=== PATIENT | female | born 1965 | race Caucasian/White ===

== ENCOUNTER 2016-07-04 08:22 | Day surgery (SDC) | payer OTHER ==
[~2016-07-04 08:22] MED LIST: RINGERS SOLUTION,LACTATED 1,000 ML IV PRN
[2016-07-04 08:40] LABS: Hematocrit 41.5 % (37.0-47.0); Hemoglobin 13.9 gm/dL (12.5-16.0); Mean Cell Volume 84.3 fl (78-100); Mean Corpuscular Hemoglobin 28.3 pg (27-31); Mean Corpuscular Hgb Conc 33.5 g/dl (32-36); Mean Platelet Volume 9.7 fl (6.0-9.5); Neutrophil # 3.3 K/mm3 (1.3-6.0); Neutrophil % 62.7 % (42-75.0); Platelet Count 279 K/mm3 (150-450); Red Blood Count 4.92 M/mm3 (4.2-5.4); Red Cell Distribution Width 14.2 % (11.5-14.0); White Blood Count 5.3 K/mm3 (4.0-10.5)
[2016-07-04] MEDS ORDERED: RINGERS SOLUTION,LACTATED 1,000 ML IV ONE (09:04)
[2016-07-04] MEDS ORDERED: oxyCODONE HCL/ACETAMINOPHEN 1 TAB TABLET PO PRN (10:10)
[2016-07-04] MEDS ORDERED: IBUPROFEN 600 MG TABLET PO PRN (10:11)
[2016-07-04 11:13] VITALS: BP 130/82
--- NOTE | 2016-07-04 12:45 | OR ---
Operative Report - Dictated Report Narrative: Operative Report 07/04/16 Hysteroscopy Dilatation and Curettage Preoperative Diagnosis: Menorrhagia, Postmenopausal Bleeding Postoperative Diagnosis: Postmenopausal Bleeding, Cervical Stenosis Procedure: Hysteroscopy Dilatation and Curettage Surgeon: Janay Moreno M.D. Anesthesia: Jarad Ocasio CRNA, IV sedation Findings: Cervical stenosis. Uterine sound with hysteroscope 7 cm. There was no evidence of submucosal fibroid or endometrial polyp. Fluids: 200 ml EBL: Minimal Drains: None Complications: None Condition: Stable Pathology: Endometrial curettings Procedure: The patient was taken to the operating room with IV fluids running. She was placed in the dorsal lithotomy position after anesthesia was induced. A bivalve speculum was placed in the vagina. The anterior lip of the cervix was grasped with a single-tooth tenaculum. Uterine sound was not easily passed. 2 mm hysteroscope was introduced into the endocervical canal and used to navigate through the stenotic cervix. Uterine sound was 7 cm. The cervix was dilated with Partha dilators. The hysteroscope was introduced into the endometrial cavity. The cavity was distended with normal saline. [place] were visualized bilaterally. There was no evidence of endometrial polyp or submucosal fibroid. There was little endometrial curettings. The hysteroscope was removed. The cavity was sharply curetted without difficulty. The hysteroscope was once again introduced into the cavity. The cavity was completely curetted. The hysteroscope was removed. The single-tooth tenaculum was removed. Sites were hemostatic. The speculum was removed from the vagina. Sponge counts were correct 2. The patient tolerated the procedure well.
== END 2016-07-04 08:23 | disposition home or self-care (01) ==
LOC: AMB 08:22
PROVIDERS: ATTEND Obstetrics & Gynecology
PROC: 0UDB8ZX Extraction of Endometrium, Via Natural or Artificial Opening Endoscopic, Diagnostic (ICD-10-PCS; principal; 2016-07-04 09:30)
DX: N92.0 Excessive and frequent menstruation with regular cycle (principal); N88.2 Stricture and stenosis of cervix uteri; E03.9 Hypothyroidism, unspecified; Z68.24 Body mass index [BMI] 24.0-24.9, adult